=== PATIENT | female | born 1990 | race Caucasian/White ===

== ENCOUNTER 2017-10-17 18:58 | Emergency (ER) | payer OTHER ==
[~2017-10-17] VITALS: Ht 157.5 cm; Wt 53.7 kg
[~2017-10-17 18:58] MED LIST: KEFLEX500 MG PO; PYRIDIUM200 MG PO
[2017-10-17 21:36] VITALS: BP 107/74
== END 2017-10-17 21:37 | disposition home or self-care (01) ==
LOC: EME 18:58
DX: S13.4XXA Sprain of ligaments of cervical spine, initial encounter (principal); V48.5XXA Car driver injured in noncollision transport accident in traffic accident, initial encounter; Y92.410 Unspecified street and highway as the place of occurrence of the external cause; E04.1 Nontoxic single thyroid nodule
CPT/HCPCS: 70450; 72125; 99281; 99284